=== PATIENT | female | born 1940 ===

== ENCOUNTER → 2021-02-28 13:51 | Outpatient (BNVA) | payer MEDICARE, MEDICAID, SELFPAY | PROVIDERS: PCP Family Medicine; Visit Provider Hospitalist | DX: G47.33 Obstructive sleep apnea (adult) (pediatric) (principal); J45.40 Moderate persistent asthma, uncomplicated | CPT/HCPCS: 99212 ==

== ENCOUNTER → 2021-04-01 10:12 | Outpatient (REF) | payer MEDICARE, MEDICAID, SELFPAY | LOC: HO.SL 10:12 | PROVIDERS: PCP Family Medicine; Visit Provider Hospitalist | DX: G47.33 Obstructive sleep apnea (adult) (pediatric) (principal) | CPT/HCPCS: 95806 ==

== ENCOUNTER → 2021-05-19 10:23 | Outpatient (BNVA) | payer MEDICARE, MEDICAID, SELFPAY | PROVIDERS: PCP Family Medicine; Visit Provider Hospitalist | DX: J45.40 Moderate persistent asthma, uncomplicated (principal); J31.0 Chronic rhinitis; G47.33 Obstructive sleep apnea (adult) (pediatric) | CPT/HCPCS: 99212 ==

== ENCOUNTER → 2021-07-14 20:36 | Outpatient (REF) | payer MEDICARE, MEDICAID, SELFPAY | LOC: HO.SL 20:36 | PROVIDERS: Visit Provider Hospitalist | DX: G47.33 Obstructive sleep apnea (adult) (pediatric) (principal) | CPT/HCPCS: 95811 ==

== ENCOUNTER → 2021-07-21 10:06 | Outpatient (BNVA) | payer MEDICARE, MEDICAID, SELFPAY | PROVIDERS: PCP Family Medicine; Visit Provider Hospitalist | DX: G47.33 Obstructive sleep apnea (adult) (pediatric) (principal); J45.40 Moderate persistent asthma, uncomplicated; J31.0 Chronic rhinitis | CPT/HCPCS: 99212; J0461 ==

== ENCOUNTER → 2021-10-15 11:17 | Outpatient (BNVA) | payer MEDICARE, MEDICAID, SELFPAY | PROVIDERS: PCP Family Medicine; Visit Provider Hospitalist | DX: G47.33 Obstructive sleep apnea (adult) (pediatric) (principal); J31.0 Chronic rhinitis | CPT/HCPCS: 99212 ==

== ENCOUNTER → 2021-11-26 10:08 | Outpatient (BNVA) | payer MEDICARE, MEDICAID, SELFPAY | PROVIDERS: PCP Family Medicine; Visit Provider Hospitalist | DX: J45.40 Moderate persistent asthma, uncomplicated (principal); J31.0 Chronic rhinitis; G47.33 Obstructive sleep apnea (adult) (pediatric); I50.9 Heart failure, unspecified | CPT/HCPCS: 94618; 99212 ==

== ENCOUNTER → 2022-01-22 10:11 | Outpatient (BNVA) | payer MEDICARE, MEDICAID, SELFPAY | PROVIDERS: PCP Family Medicine; Visit Provider Hospitalist | DX: G47.33 Obstructive sleep apnea (adult) (pediatric) (principal); J45.40 Moderate persistent asthma, uncomplicated; J31.0 Chronic rhinitis; I50.9 Heart failure, unspecified | CPT/HCPCS: 99212 ==

== ENCOUNTER 2022-05-18 14:07 | Outpatient (REF) | payer MEDICARE, MEDICAID, SELFPAY ==
--- NOTE | ~2022-05-18 | XR_ITS ---
EXAMINATION: XR CHEST CLINICAL INFORMATION: R07.9 - Chest pain, unspecified COMPARISON: None TECHNIQUE: 2 views of the chest were obtained. FINDINGS: No pneumothorax, pleural reaction, or effusion. The costophrenic sulci are clear. The cardiopericardial silhouette is normal in size. There is mild fullness central vasculature. No Leon B lines. No cephalization of flow. There are surgical clips overlying the lower right anterior lateral chest. The hilar and mediastinal contours are unremarkable. There are degenerative changes thoracic spine. No visible acute bony abnormality. XR/XR chest 2V IMPRESSION: -No pneumothorax, infiltrate, or effusion. -Heart size normal. Mild fullness central vasculature. No Leon B lines.
== END 2022-05-18 14:08 | disposition home or self-care (01) ==
LOC: HO.XRAY 14:07
PROVIDERS: PCP Family Medicine; Visit Provider Hospitalist
DX: R07.9 Chest pain, unspecified (principal); J45.40 Moderate persistent asthma, uncomplicated; J31.0 Chronic rhinitis; G47.33 Obstructive sleep apnea (adult) (pediatric); I50.9 Heart failure, unspecified
CPT/HCPCS: 71046; 99212

== ENCOUNTER → 2022-09-14 13:09 | Outpatient (BNVA) | payer MEDICARE, MEDICAID, SELFPAY | PROVIDERS: PCP Family Medicine; Visit Provider Hospitalist | DX: J31.0 Chronic rhinitis (principal); J45.40 Moderate persistent asthma, uncomplicated; G47.33 Obstructive sleep apnea (adult) (pediatric); I50.9 Heart failure, unspecified | CPT/HCPCS: 99212 ==

== ENCOUNTER → 2022-12-04 10:33 | Outpatient (BNVA) | payer MEDICARE, MEDICAID, SELFPAY | PROVIDERS: PCP Family Medicine; Visit Provider Hospitalist | DX: J45.40 Moderate persistent asthma, uncomplicated (principal); J31.0 Chronic rhinitis; I50.9 Heart failure, unspecified; R07.9 Chest pain, unspecified; G47.33 Obstructive sleep apnea (adult) (pediatric); C76.2 Malignant neoplasm of abdomen; C77.9 Secondary and unspecified malignant neoplasm of lymph node, unspecified; R97.8 Other abnormal tumor markers | CPT/HCPCS: 99212 ==

== ENCOUNTER → 2023-02-16 14:07 | Outpatient (BNVA) | payer MEDICARE, MEDICAID, SELFPAY | PROVIDERS: PCP Family Medicine; Visit Provider Hospitalist | DX: J45.40 Moderate persistent asthma, uncomplicated (principal); J31.0 Chronic rhinitis; I50.9 Heart failure, unspecified; G47.33 Obstructive sleep apnea (adult) (pediatric); Z99.89 Dependence on other enabling machines and devices | CPT/HCPCS: 99212 ==

== ENCOUNTER → 2023-04-05 11:19 | Outpatient (BNVA) | payer MEDICARE, MEDICAID, SELFPAY | PROVIDERS: PCP Family Medicine; Visit Provider Hospitalist | DX: J45.40 Moderate persistent asthma, uncomplicated (principal); J31.0 Chronic rhinitis; G47.33 Obstructive sleep apnea (adult) (pediatric); I50.9 Heart failure, unspecified; I35.0 Nonrheumatic aortic (valve) stenosis; R06.00 Dyspnea, unspecified | CPT/HCPCS: 94618; 99212 ==

== ENCOUNTER 2023-08-06 11:19 | Outpatient (AMB) | payer MEDICARE, MEDICAID, SELFPAY ==
--- NOTE | 2023-08-06 11:23 | A.OFFVIS_ITS ---
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 Her last visit with the oncologist was reassuring. She is scheduled for another CAT scan in October. Her asthma is appears to be in good control with the Symbicort, in cruise and also has a short-acting beta agonist. She does not use a short-acting beta agonist more than twice a week. Her biggest issue right now staying with sleep apnea. She is not getting supplies and t herefore her equipment is not up to date and she cannot keep using it with equipment that is contaminated. Therefore, her DME company is no longer providing her with supplies. The patient needs to have another sleep study in order to get reoccur point with the CPAP DME company to be able to get supplies. The patient continues to have significant daytime drowsiness with headaches in the morning and an elevated Leesville score 12/24. She also did have a CT scan of the chest and abdomen. It appears that there's no evidence of any metastatic disease, although, her CA [address] still elevated[address] Her last [address] scan of the chest was on October 30 2019. The patient will continue getting imaging studies through her oncologist. She continues her respiratory therapy. We did download the machine her AHI is down to about 1.5. Her average pressure is approximately 14 cm of water. Her machine set right now 4-16. It appears that she has a hard time with the higher pressures. Therefore I adjusted her machine to 10-14 hoping that we can keep her in the therapeutic window. She will try and see. In the meantime respiratory status has been stable. She denies any new issues with her underlying metastatic disease. 07/04/2020 the patient is here for pulmonary follow-up visit. Overall she is doing well. She is using her CPAP in the therapy has been affecting beneficial. However, she still leaks a lot air from the mask and is hard for her to tolerate. I did recommend different mask F30 and did fill out the paperwork from [facility] in order for her to get supplies. Patient will need a mask fitting as well. She continues to have allergy symptoms. Apparently started works better than Claritin so therefore we will change her medication to the more effective for her. She is to continue her respiratory therapy at this time. No recent exacerbations or need for prednisone at this time. 02/28/2021 the patient is here for pulmonary follow-up visit. Overall the patient has been doing well. She recently had an appointment with her oncologist and did not find any recurrence of her colon cancer. She is very happy about this. In the meantime her asthma seems to be in good control with the current respiratory regimen. She still struggling getting supplies from her CPAP company. At this point the patient does not appear to be active with her DME company and therefore has not been able to get supplies. The only way to get her supplies is to repeat her evaluation in reassess her for sleep apnea. If her sleep study does come back positive that we can arrange her to get active activated with different DME company. The patient is concerned because since she has been getting supplies she is concerning with the equipment being contaminated and she does not want to get sick. When she does not use her CPAP her Leesville score is elevated 10/17. 05/19/2021 the patient is here for a pulmonary follow-up visit. Overall she is doing well from a respiratory status. We had a bad quality seems that her respiratory status has worsening with it and she has required her short- acting beta agonist. She continues use her maintenance medication with good adherence. In the meantime she continues to have issues with her sleep apnea. She is not getting any supplies from [employer] because she is considered inactive. She did have a repeat sleep study demonstrating severe sleep apnea with AHI greater than 50 in addittion significant hypoxemia. Based on the severity of disease patient warrants a CPAP/ BiPAP titration study. Will make arrangements at this time for her to do so. In the meantime she is going to continue with respiratory therapy and will stay indoor specially while the poor air quality is present in the [facility]. her other new complaint is sinus discomfort and nasal congestion typically in the morning. 10/15/2021 the patient is here for a pulmonary follow-up visit. Overall the patient has been doing well although still feeling significant daytime angelica wsiness. Her Leesville score continues to be significantly elevated at 12/24. She had her CPAP titration study. The patient was able to be effectively treated with a CPAP between 8-10 cm. She did not require oxygen supplementation which is reassuring. At this point I will request an urgent APAP set up for the patient based on her severe sleep apnea and hypoxemia. Otherwise respiratory status has been stable. The patient has not require her short-acting beta agonist. She continues on her maintenance therapy with good effect. The APAP therapy was ordered back in July, but she has yet to start the therapy. I did call the DME and should be provided in the next 1-2 weeks. Otherwise the patient is doing well. She needs to get both the booster covid vaccine and also the flu shot. 11/26/2021 the patient is here for pulmonary follow-up visit. Recently she was hospitalized due to congestive heart failure. She was told that she had significant right-sided heart failure. She also had an echocardiogram that I do not have the results but had a preserved EF. The patient was placed on CPAP at nighttime. Unfortunately she still waiting for the CPAP that was requested months ago. This is primarily due to the pandemic. I did call the [employer] company and they did have an emergency the stalk. The able supply a new CPAP for her urgently at this time. In the meantime she is on a higher dose diuretic. 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 She also follows up with Nephrology. She will be calling them for an appointment. In the meantime I will have her undergo blood work to make sure that she is not developing significant insufficiency with the additional diuresis. Her breathing has improved. In the office we did perform a 6 minute walk test and she did not qualify for oxygen which is reassuring. We will follow-up in 2 months after she has situated with her CPAP to assess improvement. In the meantime it is likely the patient will be undergoing additional testing. Hopefully she does have a right heart catheterization to better address any evidence of any pulmonary hypertension and to categorize her condition better. 05/18/2022 the patient is here for a pulmonary follow-up visit. Patient has been complaining of some epigastric discomfort and some reflux related issues. Moderate severity. Also has a cough. She continues uses CPAP. The CPAP therapy continues to be Affecting beneficial. Because of the epigastric discomfort we had her undergo a chest x-ray. She does have some increased vasculature markings. The patient is already on diuretics. She is also on cardioprotective medications. 09/14/2022 the patient is here for a pulmonary follow-up visit. Since we last spoke she developed worsening chest discomfort and she did go to the ER. She was noted to have significant coronary artery disease. She underwent open heart surgery. There were able to perform a 2 vessel CABG. Clinically the patient did well. She is to have discomfort from her surgery. she continues use her respiratory therapy. Her breathing has improved after her surgery. The patient has been using her respiratory inhalers with good adherence. She also continues use her CPAP. The CPAP therapy continues to be affecting beneficial. She does use it for more than 4 hours a night. At this point the patient is doing well follow-up in 8-12 months or sooner if any new issues arise. 12/04/2022 the patient is here for a pulmonary follow-up visit. The patient has been complaining of some substernal chest pressure sensation. She still has the area of the surgery a bit swollen. She started doing the nebulizer treatments and she felt relief which is reassuring. She still having some increased cough and chest congestion. The patient has been using her Symbicort as needed. In addition to that, the patient had been sent home with the Trelegy. We did call pharmacy to confirm that. I explained to the patient that she cannot use the Trelegy in the Symbicort. Therefore she will hold off on the Symbicort and continue to use the Trelegy daily. The patient also continues use her nebulizer as needed I will make sure far to have a rescue inhaler available. In regards the CPAP she continues use it every night. The CPAP therapy has been affecting beneficial. She states that she is using it for more than 4 hours a night. I do not have access to a review right now. However, she has not gotten mask in long time. I did reach out to her [employer] company to see with this status is. It may be the issue that the patient does not answer her phone calls specially if she is not aware of the number. Otherwise patient is doing well. Will have her undergo a chest x-ray. Patient prefers to do it at [facility]. 02/16/2023 the the patient is here for pulmonary follow-up visit. She was recently hospitalized with heart failure at [facility] prior to that she was admitted to the hospital with a bowel obstruction requiring fluid. Her Lasix dose has been increased at times. The patient recently was sick a upper respiratory illness. She developed a cough. She went to an urgent care last week and she was given prednisone and also antibiotics. Clinically she is feeling better although she was only given 5 days of the prednisone he is running out. She still has some wheezing on examination. She has also been using her nebulizer. Her daughter is monitoring closely her weight specially since she is not taking all the diuretics prescribed. Her volume status seems to be better. Her breathing also has been better although she is very fatigued. She was noted to be anemic. 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 The patient does have a hist ory of colon cancer. She also also status post cardiac surgery. We did go for brief walking oximetry in the patient did not requalify for oxygen. Will have her check an overnight oximetry to see if she needs oxygen at nighttime. 04/05/2023 the patient is here for pulmonary follow-up visit. The patient is having worsening dyspnea on exertion since she left the hospital. She has been using the Lasix and the Aldactone. Although call back to using this morning because she was going to go out of the house and is hard for her. She continues use respiratory therapy with partial resolution of the symptoms. The patient did have a 6 minutes walk test the patient did desaturate down to 88% with activity and she was visibly dyspneic with a dyspnea score of 8/10. She did rest we did place her on oxygen and the patient was able to then ambulate a little better. In the meantime the oxygen requirement is appears to be new. She does have a condition of congestive heart failure. Also has a history of cancer. Therefore if the differential is broad as far as the etiology of the acute respiratory failure. Will request blood work and also a chest x-ray and also a D-dimer. If the D-dimer is elevated she may need to get a CTA to rule out thromboembolic disease. If her symptoms worsen then she should go to the ER for further care. She is going to continue with current respiratory therapy and we will provide her with oxygen for home and also portability outside of the home. 08/06/2023 the patient is here for a pulmonary follow-up visit. Since she is been using the oxygen she felt better. Also she has been aggressively diuresed and therefore this is helping with the heart failure issues. Her respiratory status has been stable. She continues uses CPAP at nighttime. Will go ahead and request an overnight oximetry to see if she needs the oxygen along with CPAP. Also will request an adapter for her CPAP in case she does need the oxygen with CPAP. She continues with respiratory therapy with good effect. the CPAP therapy continues to be affecting beneficial. She does try to use it more than 4 hours a night. Initially when she got the oxygen she was not sure what to do. Explained to her that because of her heart condition she needs to be using her CPAP to help decrease the work on the heart. The patient will start using her CPAP now more regularly. [facility] Medical History (Updated 08/08/23 @ 22:02 by Ron Ny MD) Dyspnea Heart failure Chronic rhinitis Colon cancer Asthma BRADEN (obstructive sleep apnea) Surgical History (Updated 01/22/22 @ 11:24 by Aubree Luna PA-C) History of tubal ligation History of tonsillectomy Social History (Updated 09/14/22 @ 13:26 by Marlene Mcnulty Artem) Patient Tobacco Use Status: Former Tobacco user Review of Systems Const Denies night sweats ENT Denies change in voice, Denies lip swelling, Denies mouth pain, Reports nasal congestion, Reports nasal discharge, Denies sinus pain and Denies tongue swelling Card Denies chest pain and Reports dyspnea on exertion Resp Reports cough, Reports dyspnea on exertion and Denies wheezing GI Reports abdominal pain, Reports dyspepsia and Reports heartburn Musc Denies no additional complaints Neuro Denies Neuro-related abnormal movements Psych Denies no additional complaints Kameron/Lymph Denies easy bleeding and Denies lymphadenopathy Aller/Immun Denies lip swelling, Denies tongue swelling and Denies wheezing Physical Exam Vital Signs: Last Vital Signs Pulse 77 08/06/23 11:24 Pulse Ox 96 08/06/23 11:24 Oxygen Delivery Method Room Air 08/06/23 11:24 BMI result Body Mass Index 37.5 Const General: alert Neck Neck: Yes normal visual inspection, Yes full ROM and Yes no lymphadenopathy Chest Chest palpation & inspection: normal inspection of the chest Resp Auscultation: no wheezes and diminished lung sounds Cardio Rate: regular rate Rhythm: regular rhythm Heart sounds: S1 normal heart sound present and S2 normal heart sound present GI Palpation (GI): Soft to palpation and nontender Auscultation: normal bowel sounds Skin General skin exam: rashes and/or lesions noted Extrem General: Yes edema Assessment & Plan Assessment & Plan (1) Asthma: Code(s): J45.909 - Unspecified asthma, uncomplicated Qualifiers: Asthma complication type: uncomplicated Asthma persistence: persistent Asthma severity: moderate Qualified Code(s): J45.40 - Moderate persistent asthma, uncomplicated (2) BRADEN (obstructive sleep apnea): Code(s): G47.33 - Obstructive sleep apnea (adult) (pediatric) (3) Chronic rhinitis: Code(s): J31.0 - Chronic rhinitis (4) Heart failure: Code(s): I50.9 - Heart failure, unspecified Qualifiers: Heart failure chronicity: chronic Heart failure type: systolic Qualified Code(s): I50.22 - Chronic systolic (congestive) heart failure (5) Dyspnea: Code(s): R06.00 - Dyspnea, unspecified Qualifiers: Dyspnea type: dyspnea on exertion Qualified Code(s): R06.09 - Other forms of dyspnea Plan oxygen 2L with activity. Continue Symbicort twice a day continue Incruse daily Needs to f/u with cardiology re: CHF / no requesting overnight pulse oximeter on cpap on RA continue fluticasone nasal spray Diuresis as tolerated Continue APAP 8-12 cm , mask to F20 reflux diet follow-up in 3-4 months Orders: Orders Overnight Pulse Oximetry Today I50.9 - Heart failure, unspecified, R06.00 - Dyspnea, unspecified Coding Level of Care Code Est Pt Level 4 (42770) Diagnoses Moderate persistent asthma without complication J45.40 Asthma complication type: uncomplicated Asthma persistence: persistent Asthma severity: moderate BRADEN (obstructive sleep apnea) G47.33 Chronic rhinitis J31.0 Chronic systolic heart failure I50.22 Heart failure chronicity: chronic Heart failure type: systolic Dyspnea on exertion R06.09 Dyspnea type: dyspnea on exertion Time Spent (min) 18
[2023-08-06 11:24] VITALS: PULSE 77; O2SAT 96; BMI 37.5
== END 2023-08-06 12:10 | disposition home or self-care (01) ==
PROVIDERS: PCP Family Medicine; Visit Provider Hospitalist
DX: J45.40 Moderate persistent asthma, uncomplicated (principal); G47.33 Obstructive sleep apnea (adult) (pediatric); J31.0 Chronic rhinitis; I50.22 Chronic systolic (congestive) heart failure; R06.09 Other forms of dyspnea
CPT/HCPCS: 99214

== ENCOUNTER → 2023-08-06 11:19 | Outpatient (BNVA) | payer MEDICARE, MEDICAID, SELFPAY | PROVIDERS: PCP Family Medicine; Visit Provider Hospitalist | DX: J45.40 Moderate persistent asthma, uncomplicated (principal); G47.33 Obstructive sleep apnea (adult) (pediatric); J31.0 Chronic rhinitis; I50.22 Chronic systolic (congestive) heart failure; R06.09 Other forms of dyspnea | CPT/HCPCS: 99212 ==

== ENCOUNTER 2024-01-14 15:47 | Outpatient (AMB) | payer OTHER, SELFPAY ==
[2024-01-14 15:54] VITALS: BP 122/48; PULSE 74; O2SAT 97; BMI 35.5
--- NOTE | 2024-01-14 15:54 | MHC.OFFVIS ---
Intake Vital Signs 01/14/24 15:54 Height 5 ft 2 in Weight 194 lb 0.108 oz BMI 35.5 BP 122/48 L Blood Pressure Location Lt brachial Position Sitting Pulse 74 Pulse Source Pulse Oximeter Pulse Oximetry (%) 97 Oxygen Delivery Method Room Air Intake Visit Reasons: Asthma Intake Note: pt needs refill on albuterol for nebulizer Allergies No Known Allergies Allergy (Verified 01/14/24 15:57) HPI HPI Comments History of Present Illness Details The patient is a 83-year-old woman known asthma obstructive sleep apnea and also abdominal cancer that has spread to the lymph nodes followed closely by Oncology. Her last visit with the oncologist was reassuring. She is scheduled for another CAT scan in October. Her asthma is appears to be in good control with the Symbicort, in cruise and also has a short-acting beta agonist. She does not use a short-acting beta agonist more than twice a week. Her biggest issue right now staying with sleep apnea. She is not getting supplies and therefore her equipment is not up to date and she cannot keep using it with equipment that is contaminated. Therefore, her [employer] company is no longer providing her with supplies. The patient needs to have another sleep study in order to get reoccur point with the CPAP DME company to be able to get supplies. The patient continues to have significant daytime drowsiness with headaches in the morning and an elevated [place] score 12/24. She also did have a CT scan of the chest and abdomen. It appears that there's no evidence of any metastatic disease, although, her CA [address] still elevated[address] last [address] scan of the chest was on October 30 2019. The patient will continue getting imaging studies through her oncologist. She continues her respiratory therapy. We did download the machine her AHI is down to about 1.5. Her average pressure is approximately 14 cm of water. Her machine set right now 4-16. It appears that she has a hard time with the higher pressures. Therefore I adjusted her machine to 10-14 hoping that we can keep her in the therapeutic window. She will try and see. In the meantime respiratory status has been stable. She denies any new issues with her underlying metastatic disease. 12/04/2022 the patient is here for a pulmonary follow-up visit. The patient has been complaining of some substernal chest pressure sensation. She still has the area of the surgery a bit swollen. She started doing the nebulizer treatments and she felt relief which is reassuring. She still having some increased cough and chest congestion. The patient has been using her Symbicort as needed. In addition to that, the patient had been sent home with the Trelegy. We did call pharmacy to confirm that. I explained to the patient that she cannot use the Trelegy in the Symbicort. Therefore she will hold off on the Symbicort and continue to use the Trelegy daily. The patient also continues use her nebulizer as needed I will make sure far to have a rescue inhaler available. In regards the CPAP she continues use it every night. The CPAP therapy has been affecting beneficial. She states that she is using it for more than 4 hours a night. I do not have access to a review right now. However, she has not gotten mask in long time. I did reach out to her [employer] company to see with this status is. It may be the issue that the patient does not answer her phone calls specially if she is not aware of the number. Otherwise patient is doing well. Will have her undergo a chest x-ray. Patient prefers to do it at [facility]. 02/16/2023 the the patient is here for pulmonary follow-up visit. She was recently hospitalized with heart failure at [facility] prior to that she was admitted to the hospital with a bowel obstruction requiring fluid. Her Lasix dose has been increased at times. The patient recently was sick a upper respiratory illness. She developed a cough. She went to an urgent care last week and she was given prednisone and also antibiotics. Clinically she is feeling better although she was only given 5 days of the prednisone he is running out. She still has some wheezing on examination. She has also been using her nebulizer. Her daughter is monitoring closely her weight specially since she is not taking all the diuretics prescribed. Her volume status seems to be better. Her breathing also has been better although she is very fatigued. She was noted to be anemic. 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 The patient does have a history of colon cancer. She also also status post cardiac surgery. We did go for brief walking oximetry in the patient did not requalify for oxygen. Will have her check an overnight oximetry to see if she needs oxygen at nighttime. 04/05/2023 the patient is here for pulmonary follow-up visit. The patient is having worsening dyspnea on exertion since she left the hospital. She has been using the Lasix and the Aldactone. Although call back to using this morning because she was going to go out of the house and is hard for her. She continues use respiratory therapy with partial resolution of the symptoms. The patient did have a 6 minutes walk test the patient did desaturate down to 88% with activity and she was visibly dyspneic with a dyspnea score of 8/10. She did rest we did place her on oxygen and the patient was able to then ambulate a little better. In the meantime the oxygen requirement is appears to be new. She does have a condition of congestive heart failure. Also has a history of cancer. Therefore if the differential is broad as far as the etiology of the acute respiratory failure. Will request blood work and also a chest x-ray and also a D-dimer. If the D-dimer is elevated she may need to get a CTA to rule out thromboembolic disease. If her symptoms worsen then she should go to the ER for further care. She is going to continue with current respiratory therapy and we will provide her with oxygen for home and also portability outside of the home. 08/06/2023 the patient is here for a pulmonary follow-up visit. Since she is been using the oxygen she felt better. Also she has been aggressively diuresed and therefore this is helping with the heart failure issues. Her respiratory status has been stable. She continues uses CPAP at nighttime. Will go ahead and request an overnight oximetry to see if she needs the oxygen along with CPAP. Also will request an adapter for her CPAP in case she does need the oxygen with CPAP. She continues with respiratory therapy with good effect. the CPAP therapy continues to be affecting beneficial. She does try to use it more than 4 hours a night. Initially when she got the oxygen she was not sure what to do. Explained to her that because of her heart condition she needs to be using her CPAP to help decrease the work on the heart. The patient will start using her CPAP now more regularly. 01/14/2024 the patient is here for a pulmonary follow-up visit. Since we last spoke the patient did recover from COVID-19. Was not as severe as other people in her family. She did not need hospitalization. She did not take Paxlovid. Her symptoms have now improved although she continues to have the daytime drowsiness fatigue and brain fog. She understands the symptoms will potentially last weeks to months. In regards of her sleep apnea the CPAP therapy continues to be affecting beneficial. She does use it for more than 4 hours a night. However, she is getting irritation of the nasal bridge from the fullface mask. Therefore did have an F30 I mask available dense fit her well. Seems like the SW mask size is best suited for her. COUNT INCLUDES THE [facility] Medical History (Updated 08/08/23 @ 22:02 by Ron Ny MD) Dyspnea Heart failure Chronic rhinitis Colon cancer Asthma BRADEN (obstructive sleep apnea) Surgical History (Updated 01/22/22 @ 11:24 by Aubree Luna PA-C) History of tubal ligation History of tonsillectomy Social History (Updated 09/14/22 @ 13:26 by ELAINE Gunter) Patient Tobacco Use Status: Former Tobacco user Review of Systems Const Denies night sweats ENT Denies change in voice, Denies lip swelling, Denies mouth pain, Reports nasal congestion, Reports nasal discharge, Denies sinus pain and Denies tongue swelling Card Denies chest pain and Reports dyspnea on exertion Resp Reports cough, Reports dyspnea on exertion and Denies wheezing GI Reports abdominal pain, Reports dyspepsia and Reports heartburn Musc Denies no additional complaints Neuro Denies Neuro-related abnormal movements Psych Denies no additional complaints Kameron/Lymph Denies easy bleeding and Denies lymphadenopathy Aller/Immun Denies lip swelling, Denies tongue swelling and Denies wheezing Physical Exam Vital Signs: Last Vital Signs Pulse 74 01/14/24 15:54 BP 122/48 L 01/14/24 15:54 Pulse Ox 97 01/14/24 15:54 Oxygen Delivery Method Room Air 01/14/24 15:54 BMI result Body Mass Index 35.5 Const General: alert Neck Neck: Yes normal visual inspection, Yes full ROM and Yes no lymphadenopathy Chest Chest palpation & inspection: normal inspection of the chest Resp Auscultation: no wheezes and diminished lung sounds Cardio Rate: regular rate Rhythm: regular rhythm Heart sounds: S1 normal heart sound present and S2 normal heart sound present GI Palpation (GI): Soft to palpation and nontender Auscultation: normal bowel sounds Skin General skin exam: rashes and/or lesions noted Extrem General: Yes edema Assessment & Plan Assessment & Plan (1) Asthma: Code(s): J45.909 - Unspecified asthma, uncomplicated Qualifiers: Asthma complication type: uncomplicated Asthma persistence: persistent Asthma severity: moderate Qualified Code(s): J45.40 - Moderate persistent asthma, uncomplicated (2) BRADEN (obstructive sleep apnea): Code(s): G47.33 - Obstructive sleep apnea (adult) (pediatric) (3) Chronic rhinitis: Code(s): J31.0 - Chronic rhinitis (4) Heart failure: Code(s): I50.9 - Heart failure, unspecified Qualifiers: Heart failure chronicity: chronic Heart failure type: systolic Qualified Code(s): I50.22 - Chronic systolic (congestive) heart failure (5) Dyspnea: Code(s): R06.00 - Dyspnea, unspecified Qualifiers: Dyspnea type: dyspnea on exertion Qualified Code(s): R06.09 - Other forms of dyspnea Plan oxygen 2L with activity. Continue Symbicort twice a day continue Incruse daily continue fluticasone nasal spray Diuresis as tolerated Continue APAP 8-12 cm , mask to F20 ([facility])->F30i SW reflux diet follow-up in 6 months Medications: Refilled albuterol sulfate 2.5 mg (3 mL) inhalation Q8H PRN 180 mL 6RF shortness of breath or wheezing J45.40 - Moderate persistent asthma, uncomplicated Coding Level of Care Code Est Pt Level 4 (83982) Diagnoses Moderate persistent asthma without complication J45.40 Asthma complication type: uncomplicated Asthma persistence: persistent Asthma severity: moderate BRADEN (obstructive sleep apnea) G47.33 Chronic rhinitis J31.0 Chronic systolic heart failure I50.22 Heart failure chronicity: chronic Heart failure type: systolic Dyspnea on exertion R06.09 Dyspnea type: dyspnea on exertion Time Spent (min) 18
== END 2024-01-14 16:19 | disposition home or self-care (01) ==
PROVIDERS: PCP Family Medicine; Visit Provider Hospitalist
DX: J45.40 Moderate persistent asthma, uncomplicated (principal); G47.33 Obstructive sleep apnea (adult) (pediatric); J31.0 Chronic rhinitis; I50.22 Chronic systolic (congestive) heart failure; R06.09 Other forms of dyspnea
CPT/HCPCS: 99214

== ENCOUNTER → 2024-01-14 15:47 | Outpatient (BNVA) | payer OTHER, SELFPAY | PROVIDERS: PCP Family Medicine; Visit Provider Hospitalist | DX: J45.40 Moderate persistent asthma, uncomplicated (principal); G47.33 Obstructive sleep apnea (adult) (pediatric); R06.09 Other forms of dyspnea; J31.0 Chronic rhinitis; I50.22 Chronic systolic (congestive) heart failure; Z99.81 Dependence on supplemental oxygen; Z79.899 Other long term (current) drug therapy | CPT/HCPCS: 99212 ==

== ENCOUNTER 2024-07-21 15:25 | Outpatient (AMB) | payer OTHER, SELFPAY ==
--- NOTE | 2024-07-21 15:31 | A.OFFVIS_ITS ---
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 Her last visit with the oncologist was reassuring. She is scheduled for another CAT scan in October. Her asthma is appears to be in good control with the Symbicort, in cruise and also has a short-acting beta agonist. She does not use a short-acting beta agonist more than twice a week. Her biggest issue right now staying with sleep apnea. She is not getting supplies and therefore her equipment is not up to date and she cannot keep using it with equipment that is contaminated. Therefore, her DME company is no longer providing her with supplies. The patient needs to have another sleep study in order to get reoccur point with the CPAP DME company to be able to get supplies. The patient continues to have significant daytime drowsiness with headaches in the morning and an elevated [place] score 24. She also did have a CT scan of the chest and abdomen. It appears that there's no evidence of any metastatic disease, although, her CA [address] last [address] scan of the chest was on October 30 2019. The patient will continue getting imaging studies through her oncologist. She continues her respiratory therapy. We did download the machine her AHI is down to about 1.5. Her average pressure is approximately 14 cm of water. Her machine set right now 4-16. It appears that she has a hard time with the higher pressures. Therefore I adjusted her machine to 10-14 hoping that we can keep her in the therapeutic window. She will try and see. In the meantime respiratory status has been stable. She denies any new issues with her underlying metastatic disease. 12/04/2022 the patient is here for a pulmonary follow-up visit. The patient has been complaining of some substernal chest pressure sensation. She still has the area of the surgery a bit swollen. She started doing the nebulizer treatments and she felt relief which is reassuring. She still having some increased cough and chest congestion. The patient has been using her Symbicort as needed. In addition to that, the patient had been sent home with the Trelegy. We did call pharmacy to confirm that. I explained to the patient that she cannot use the Trelegy in the Symbicort. Therefore she will hold off on the Symbicort and continue to use the Trelegy daily. The patient also continues use her nebulizer as needed I will make sure far to have a rescue inhaler available. In regards the CPAP she continues use it every night. The CPAP therapy has been affecting beneficial. She states that she is using it for more than 4 hours a night. I do not have access to a review right now. However, she has not gotten mask in long time. I did reach out to her [employer] company to see with this status is. It may be the issue that the patient does not answer her phone calls specially if she is not aware of the number. Otherwise patient is doing well. Will have her undergo a chest x-ray. Patient prefers to do it at [facility]. 02/16/2023 the the patient is here for pulmonary follow-up visit. She was recently hospitalized with heart failure at [facility] prior to that she was admitted to the hospital with a bowel obstruction requiring fluid. Her Lasix dose has been increased at times. The patient recently was sick a upper respiratory illness. She developed a cough. She went to an urgent care last week and she was given prednisone and also antibiotics. Clinically she is feeling better although she was only given 5 days of the prednisone he is running out. She still has some wheezing on examination. She has also been using her nebulizer. Her daughter is monitoring closely her weight specially since she is not taking all the diuretics prescribed. Her volume status seems to be better. Her breathing also has been better although she is very fatigued. She was noted to be anemic. 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 The patient does have a history of colon cancer. She also also status post cardiac surgery. We did go for brief walking oximetry in the patient did not requalify for oxygen. Will have her check an overnight oximetry to see if she needs oxygen at nighttime. 04/05/2023 the patient is here for pulmonary follow-up visit. The patient is having worsening dyspnea on exertion since she left the hospital. She has been using the Lasix and the Aldactone. Although call back to using this morning because she was going to go out of the house and is hard for her. She continues use respiratory therapy with partial resolution of the symptoms. The patient did have a 6 minutes walk test the patient did desaturate down to 88% with activity and she was visibly dyspneic with a dyspnea score of 8/10. She did rest we did place her on oxygen and the patient was able to then ambulate a little better. In the meantime the oxygen requirement is appears to be new. She does have a condition of congestive heart failure. Also has a history of cancer. Therefore if the differential is broad as far as the etiology of the acute respiratory failure. Will request blood work and also a chest x-ray and also a D-dimer. If the D-dimer is elevated she may need to get a CTA to rule out thromboembolic disease. If her symptoms worsen then she should go to the ER for further care. She is going to continue with current respiratory therapy and we will provide her with oxygen for home and also portability outside of the home. 08/06/2023 the patient is here for a pulmonary follow-up visit. Since she is been using the oxygen she felt better. Also she has been aggressively diuresed and therefore this is helping with the heart failure issues. Her respiratory status has been stable. She continues uses CPAP at nighttime. Will go ahead and request an overnight oximetry to see if she needs the oxygen along with CPAP. Also will request an adapter for her CPAP in case she does need the oxygen with CPAP. She continues with respiratory therapy with good effect. the CPAP therapy continues to be affecting beneficial. She does try to use it more than 4 hours a night. Initially when she got the oxygen she was not sure what to do. Explained to her that because of her heart condition she needs to be using her CPAP to help decrease the work on the heart. The patient will start using her CPAP now more regularly. 01/14/2024 the patient is here for a pulmonary follow-up visit. Since we last spoke the patient did recover from COVID-19. Was not as severe as other people in her family. She did not need hospitalization. She did not take Paxlo vid. Her symptoms have now improved although she continues to have the daytime drowsiness fatigue and brain fog. She understands the symptoms will potentially last weeks to months. In regards of her sleep apnea the CPAP therapy continues to be affecting beneficial. She does use it for more than 4 hours a night. However, she is getting irritation of the nasal bridge from the fullface mask. Therefore did have an F30 I mask available dense fit her well. Seems like the SW mask size is best suited for her. 07/21/2024 the patient is here for pulmonary follow-up visit. Overall she is doing a lot better. She still has the oxygen available. Although has not been able to use it as often. Her brain fog is also improved. The patient has been using her CPAP at nighttime. The new nasal cradle mask is seems to be working better for her. She does tolerated well. Although she needs supplies. I will request a from her [employer]. She does CPAP more than 4 hours a night. As far as respiratory medications she continues use Symbicort. She was able to stop the Incruse which is good at this point she does have the rescue inhaler that she uses as needed less than 2 times a week. Overall the patient is doing well will have her get an x-ray for baseline. [facility] Medical History (Updated 08/08/23 @ 22:02 by Ron Ny MD) Dyspnea Heart failure Chronic rhinitis Colon cancer Asthma BRADEN (obstructive sleep apnea) Surgical History (Updated 01/22/22 @ 11:24 by Aubree Luna PA-C) History of tubal ligation History of tonsillectomy Social History (Updated 09/14/22 @ 13:26 by Marlene Mcnulty Artem) Patient Tobacco Use Status: Former Tobacco user Review of Systems Const Denies night sweats ENT Denies change in voice, Denies lip swelling, Denies mouth pain, Reports nasal congestion, Reports nasal discharge, Denies sinus pain and Denies tongue swelling Card Denies chest pain and Reports dyspnea on exertion Resp Reports cough, Reports dyspnea on exertion and Denies wheezing GI Reports abdominal pain, Reports dyspepsia and Reports heartburn Musc Denies no additional complaints Neuro Denies Neuro-related abnormal movements Psych Denies no additional complaints Kameron/Lymph Denies easy bleeding and Denies lymphadenopathy Aller/Immun Denies lip swelling, Denies tongue swelling and Denies wheezing Physical Exam Vital Signs: Last Vital Signs Pulse 78 07/21/24 15:32 BP 128/70 07/21/24 15:32 Pulse Ox 96 07/21/24 15:32 Oxygen Delivery Method Room Air 07/21/24 15:32 BMI result Body Mass Index 35.5 Const General: alert Neck Neck: Yes normal visual inspection, Yes full ROM and Yes no lymphadenopathy Chest Chest palpation & inspection: normal inspection of the chest Resp Auscultation: no wheezes and diminished lung sounds Cardio Rate: regular rate Rhythm: regular rhythm Heart sounds: S1 normal heart sound present and S2 normal heart sound present GI Palpation (GI): Soft to palpation and nontender Auscultation: normal bowel sounds Skin General skin exam: rashes and/or lesions noted Extrem General: Yes edema Assessment & Plan Assessment & Plan (1) Asthma: Code(s): J45.909 - Unspecified asthma, uncomplicated Category: Medical Qualifiers: Asthma complication type: uncomplicated Asthma persistence: persistent Asthma severity: moderate Qualified Code(s): J45.40 - Moderate persistent asthma, uncomplicated (2) BRADEN (obstructive sleep apnea): Code(s): G47.33 - Obstructive sleep apnea (adult) (pediatric) Category: Medical (3) Chronic rhinitis: Code(s): J31.0 - Chronic rhinitis Category: Medical (4) Heart failure: Code(s): I50.9 - Heart failure, unspecified Category: Medical Qualifiers: Heart failure chronicity: chronic Heart failure type: systolic Qualified Code(s): I50.22 - Chronic systolic (congestive) heart failure (5) Dyspnea: Code(s): R06.00 - Dyspnea, unspecified Category: Medical Qualifiers: Dyspnea type: dyspnea on exertion Qualified Code(s): R06.09 - Other forms of dyspnea Plan oxygen 2L with activity. Continue Symbicort twice a day stopped Incruse daily continue fluticasone nasal spray Diuresis as tolerated Continue APAP 8-12 cm , mask to F20 ([facility])->F30i SW reflux diet CXR follow-up in 6 months Orders: Orders XR chest 2V 07/21/24 R06.09 - Other forms of dyspnea Medications: New budesonide-formoterol 160-4.5 mcg/actuation (Symbicort) 2 puffs inhalation BID 10.2 grams 11RF 30 days J44.89 - Other specified chronic obstructive pulmonary disease Coding Level of Care Code Est Pt Level 4 (80741) Complex EM visit Add On G2211 Diagnoses Moderate persistent asthma without complication J45.40 Asthma complication type: uncomplicated Asthma persistence: persistent Asthma severity: moderate BRADEN (obstructive sleep apnea) G47.33 Chronic rhinitis J31.0 Chronic systolic heart failure I50.22 Heart failure chronicity: chronic Heart failure type: systolic Dyspnea on exertion R06.09 Dyspnea type: dyspnea on exertion Time Spent (min) 16
[2024-07-21 15:32] VITALS: BP 128/70; PULSE 78; O2SAT 96; BMI 35.5
== END 2024-07-21 15:53 | disposition home or self-care (01) ==
PROVIDERS: PCP Family Medicine; Visit Provider Hospitalist
DX: J45.40 Moderate persistent asthma, uncomplicated (principal); G47.33 Obstructive sleep apnea (adult) (pediatric); J31.0 Chronic rhinitis; I50.22 Chronic systolic (congestive) heart failure; R06.09 Other forms of dyspnea
CPT/HCPCS: 99214; G2211

== ENCOUNTER → 2024-07-21 15:25 | Outpatient (BNVA) | payer OTHER, SELFPAY | PROVIDERS: PCP Family Medicine; Visit Provider Hospitalist | DX: J45.40 Moderate persistent asthma, uncomplicated (principal); J31.0 Chronic rhinitis; R06.09 Other forms of dyspnea; G47.33 Obstructive sleep apnea (adult) (pediatric); I50.22 Chronic systolic (congestive) heart failure | CPT/HCPCS: 99212 ==

== ENCOUNTER 2025-03-28 09:11 | Outpatient (AMB) | payer OTHER, SELFPAY ==
--- NOTE | 2025-03-28 09:15 | A.OFFVIS_ITS ---
Vital Signs 03/28/25 09:16 Height 5 ft 2 in BMI Reason not done Patient refused/unable BP 114/50 L Blood Pressure Location Lt brachial Position Sitting Pulse 67 Pulse Source Pulse Oximeter Pulse Oximetry (%) 95 Oxygen Delivery Method Room Air Intake Visit Reasons: Asthma Allergies No Known Allergies Allergy (Verified 03/28/25 09:18) HPI Comments Details: The patient is a 84-year-old woman known asthma obstructive sleep apnea and also abdominal cancer that has spread to the lymph nodes followed closely by Oncology. Her last visit with the oncologist was reassuring. She is scheduled for another CAT scan in October. Her asthma is appears to be in good control with the Symbicort, in cruise and also has a short-acting beta agonist. She does not use a short-acting beta agonist more than twice a week. Her biggest issue right now staying with sleep apnea. She is not getting supplies and therefore her equipment is not up to date and she cannot keep using it with equipment that is contaminated. Therefore, her DME company is no longer providing her with supplies. The patient needs to have another sleep study in order to get reoccur point with the CPAP DME company to be able to get supplies. The patient continues to have significant daytime drowsiness with headaches in the morning and an elevated [place] score 12/24. She also did have a CT scan of the chest and abdomen. It appears that there's no evidence of any metastatic disease, although, her CA [address] still elevated[address] Her last [address] scan of the chest was on October 30 2019. The patient will continue getting imaging studies through her oncologist. She continues her respiratory therapy. We did download the machine her AHI is down to about 1.5. Her average pressure is approximately 14 cm of water. Her machine set right now 4-16. It appears that she has a hard time with the higher pressures. Therefore I adjusted her machine to 10-14 hoping that we can keep her in the therapeutic window. She will try and see. In the meantime respiratory status has been stable. She denies any new issues with her underlying metastatic disease. 12/04/2022 the patient is here for a pulmonary follow-up visit. The patient has been complaining of some substernal chest pressure sensation. She still has the area of the surgery a bit swollen. She started doing the nebulizer treatments and she felt relief which is reassuring. She still having some increased cough and chest congestion. The patient has been using her Symbicort as needed. In addition to that, the patient had been sent home with the Trelegy. We did call pharmacy to confirm that. I explained to the patient that she cannot use the Trelegy in the Symbicort. Therefore she will hold off on the Symbicort and continue to use the Trelegy daily. The patient also continues use her nebulizer as needed I will make sure far to have a rescue inhaler available. In regards the CPAP she continues use it every night. The CPAP therapy has been affecting beneficial. She states that she is using it for more than 4 hours a night. I do not have access to a review right now. However, she has not gotten mask in long time. I did reach out to her [employer] to see with this status is. It may be the issue that the patient does not answer her phone calls specially if she is not aware of the number. Otherwise patient is doing well. Will have her undergo a chest x-ray. Patient prefers to do it at [facility]. 02/16/2023 the the patient is here for pulmonary follow-up visit. She was recently hospitalized with heart failure at [facility] prior to that she was admitted to the hospital with a bowel obstruction requiring fluid. Her Lasix dose has been increased at times. The patient recently was sick a up per respiratory illness. She developed a cough. She went to an urgent care last week and she was given prednisone and also antibiotics. Clinically she is feeling better although she was only given 5 days of the prednisone he is running out. She still has some wheezing on examination. She has also been using her nebulizer. Her daughter is monitoring closely her weight specially since she is not taking all the diuretics prescribed. Her volume status seems to be better. Her breathing also has been better although she is very fatigued. She was noted to be anemic. The patient is working closely with her blade sharpener and oncologist regarding her anemia. The patient does have a history of colon cancer. She also also status post cardiac surgery. We did go for brief walking oximetry in the patient did not requalify for oxygen. Will have her check an overnight oximetry to see if she needs oxygen at nighttime. 04/05/2023 the patient is here for pulmonary follow-up visit. The patient is having worsening dyspnea on exertion since she left the hospital. She has been using the Lasix and the Aldactone. Although call back to using this morning because she was going to go out of the house and is hard for her. She continues use respiratory therapy with partial resolution of the symptoms. The patient did have a 6 minutes walk test the patient did desaturate down to 88% with activity and she was visibly dyspneic with a dyspnea score of 8/10. She did rest we did place her on oxygen and the patient was able to then ambulate a little better. In the meantime the oxygen requirement is appears to be new. She does have a condition of congestive heart failure. Also has a history of cancer. Therefore if the differential is broad as far as the etiology of the acute respiratory failure. Will request blood work and also a chest x-ray and also a D-dimer. If the D-dimer is elevated she may need to get a CTA to rule out thromboembolic disease. If her symptoms worsen then she should go to the ER for further care. She is going to continue with current respiratory therapy and we will provide her with oxygen for home and also portability outside of the home. 08/06/2023 the patient is here for a pulmonary follow-up visit. Since she is been using the oxygen she felt better. Also she has been aggressively diuresed and therefore this is helping with the heart failure issues. Her respiratory status has been stable. She continues uses CPAP at nighttime. Will go ahead and request an overnight oximetry to see if she needs the oxygen along with CPAP. Also will request an adapter for her CPAP in case she does need the oxygen with CPAP. She continues with respiratory therapy with good effect. the CPAP therapy continues to be affecting beneficial. She does try to use it more than 4 hours a night. Initially when she got the oxygen she was not sure what to do. Explained to her that because of her heart condition she needs to be using her CPAP to help decrease the work on the heart. The patient will start using her CPAP now more regularly. 01/14/2024 the patient is here for a pulmonary follow-up visit. Since we last spoke the patient did recover from COVID-19. Was not as severe as other people in her family. She did not need hospitalization. She did not take Paxlovid. Her symptoms have now improved although she continues to have the daytime drowsiness fatigue and brain fog. She understands the symptoms will potentially last weeks to months. In regards of her sleep apnea the CPAP therapy continues to be affecting beneficial. She does use it for more than 4 hours a night. However, she is getting irritation of the nasal bridge from the fullface mask. Therefore did have an F30 I mask available dense fit her well. Seems like the SW mask size is best suited for her. 07/21/2024 the patient is here for pulmonary follow-up visit. Overall she is doing a lot better. She still has the oxygen available. Although has not been able to use it as often. Her brain fog is also improved. The patient has been using her CPAP at nighttime. The new nasal cradle mask is seems to be working better for her. She does tolerated well. Although she needs supplies. I will request a from her [employer] company. She does CPAP more than 4 hours a night. As far as respiratory medications she continues use Symbicort. She was able to stop the Incruse which is good at this point she does have the rescue inhaler that she uses as needed less than 2 times a week. Overall the patient is doing well will have her get an x-ray for baseline. 03/28/2025 the patient is here for a pulmonary follow-up visit. Overall she is doing well from a respiratory status. She has not had any issues with her breathing and she actually has not had to use the oxygen. She is concerned about having oxygen house specially if she works with different things in the house she does not like the oxygen there so therefore will have them discontinue right now. The patient has a worse develops any worsening symptoms we can also re-evaluate to see if she needs it again. In the meantime she does continue to use his CPAP at night and a CPAP therapy has been affecting beneficial. She will continue with the current therapy as prescribed. She continues to have her respiratory medications as prescribed. The patient will follow-up in the spring if she has any issues prior to that she will call for an earlier assessment. [facility] Medical History (Updated 08/08/23 @ 22:02 by Ron Ny MD) Dyspnea Heart failure Chronic rhinitis Colon cancer Asthma BRADEN (obstructive sleep apnea) Surgical History (Updated 01/22/22 @ 11:24 by Aubree Luna PA-C) History of tubal ligation History of tonsillectomy Social History Patient Tobacco Use Status: Former Tobacco user Review of Systems Const Denies night sweats ENT Denies change in voice, Denies lip swelling, Denies mouth pain, Reports nasal congestion, Reports nasal discharge, Denies sinus pain and Denies tongue swelling Card Denies chest pain and Reports dyspnea on exertion Resp Reports cough, Reports dyspnea on exertion and Denies wheezing GI Reports abdominal pain, Reports dyspepsia and Reports heartburn Musc Denies no additional complaints Neuro Denies Neuro-related abnormal movements Psych Denies no additional complaints Kameron/Lymph Denies easy bleeding and Denies lymphadenopathy Aller/Immun Denies lip swelling, Denies tongue swelling and Denies wheezing Physical Exam Vital Signs: Last Vital Signs Pulse 67 03/28/25 09:16 BP 114/50 L 03/28/25 09:16 Pulse Ox 95 03/28/25 09:16 Oxygen Delivery Method Room Air 03/28/25 09:16 Const General: alert Neck Neck: Yes normal visual inspection, Yes full ROM and Yes no lymphadenopathy Chest Chest palpation & inspection: normal inspection of the chest Resp Auscultation: clear to auscultation bilaterally and no wheezes Cardio Rate: regular rate Rhythm: regular rhythm Heart sounds: S1 normal heart sound present and S2 normal heart sound present GI Palpation (GI): Soft to palpation and nontender Auscultation: normal bowel sounds Skin General skin exam: rashes and/or lesions noted Extrem General: Yes edema Assessment & Plan Assessment & Plan (1) Asthma: Code(s): J45.909 - Unspecified asthma, uncomplicated Category: Medical Qualifiers: Asthma complication type: uncomplicated Asthma persistence: persistent Asthma severity: moderate Qualified Code(s): J45.40 - Moderate persistent asthma, uncomplicated (2) BRADEN (obstructive sleep apnea): Code(s): G47.33 - Obstructive sleep apnea (adult) (pediatric) Category: Medical (3) Chronic rhinitis: Code(s): J31.0 - Chronic rhinitis Category: Medical (4) Heart failure: Code(s): I50.9 - Heart failure, unspecified Category: Medical Qualifiers: Heart failure chronicity: chronic Heart failure type: systolic Qualified Code(s): I50.22 - Chronic systolic (congestive) heart failure (5) Dyspnea: Code(s): R06.00 - Dyspnea, unspecified Category: Medical Qualifiers: Dyspnea type: dyspnea on exertion Qualified Code(s): R06.09 - Other forms of dyspnea Plan Stopped oxygen 2L with activity. Continue Symbicort twice a day continue fluticasone nasal spray Diuresis as tolerated Continue APAP 8-12 cm , mask to F20 ([employer]) reflux diet follow-up in 8-10 months Coding Level of Care Code Est Pt Level 4 (66655) Complex EM visit Add On G2211 Diagnoses Moderate persistent asthma without complication J45.40 Asthma complication type: uncomplicated Asthma persistence: persistent Asthma severity: moderate BRADEN (obstructive sleep apnea) G47.33 Chronic rhinitis J31.0 Chronic systolic heart failure I50.22 Heart failure chronicity: chronic Heart failure type: systolic Dyspnea on exertion R06.09 Dyspnea type: dyspnea on exertion Time Spent (min) 16
[2025-03-28 09:16] VITALS: BP 114/50; PULSE 67; O2SAT 95
--- OUTSIDE RECORDS SUMMARY | 2025-03-28 09:37 | XMS_ITS | Clinical Summary ---
Author Organization [employer] [facility] Address [address] [place] [address] Care Team Providers Care Printing Shop Supervisor Name Role Phone Unavailable Primary Care Provider Unavailabl e Allergies Active Allergy Reactions Criticality Noted Date Comments Other 01/05/2022 Pollen Extract 01/05/2022 Medications aspirin 81.25 MG split tablet Take 81 mg by mouth. 2 Active Ergocalciferol (Vitamin D2) 10 MCG (400 UNIT) tablet Take 1.25 mcg by mouth. 3 Active furosemide (Lasix) 40 MG tablet Take 1 tablet by mouth Once per day. 2 Active Tresiba FlexTouch 100 UNIT/ML injection INJECT 18 UNITS UNDER THE SKIN NIGHTLY AT BEDTIME. Active sertraline (Zoloft) 100 MG tablet Take by mouth. 7 Active Entresto 24-26 MG tablet Take 1 tablet by mouth 2 times daily. Active pantoprazole (ProtoNix) 40 MG EC tablet Take 40 mg by mouth. 2 Active Jardiance 10 MG Take 1 tablet by mouth in the morning. 3 Active calcitriol (Rocaltrol) 0.5 MCG capsule 2 capsules 1 (one) time per week. 3 Active insulin aspart (NovoLOG, Fiasp) 100 UNIT/ML patient supplied pump Inject under the skin continuously. Before meals Active carvedilol (Coreg) 12.5 MG tablet Take by mouth with breakfast and with evening meal. Active albuterol (2.5 MG/3ML) 0.083% nebulizer solution Take by nebulization every 6 (six) hours if needed for wheezing. Active Active Problems Problem Noted Date Diagnosed Date Coronary artery disease 07/20/2024 Overview (07/24/2024): Last Assessment & Plan: Status post CABG with JUAN to LAD, SVG to OM. She had no angina symptoms. Will check a lipid profile. Will discontinue Plavix. Anxiety disorder 06/14/2024 Benign essential hypertension 06/14/2024 (HFpEF) heart failure with preserved ejection fr action 06/14/2024 HFrEF (heart failure with reduced ejection fract ion) 06/14/2024 Class 1 obesity 06/14/2024 Class 2 obesity 06/14/2024 Coronary atherosclerosis due to calcified oconnor ry lesion 06/14/2024 Hypothyroidism 06/14/2024 Insulin long-term use 06/14/2024 Lower leg edema 06/14/2024 Microhematuria 06/14/2024 Moderate persistent asthma 06/14/2024 Overview (06/14/2024): Dr. Anant Ny Normocytic anemia 06/14/2024 Normocytic normochromic anemia 06/14/2024 NSTEMI (non-ST elevated myocardial infarction) 0 06/14/2024 Disorder of carotid artery 06/14/2024 Overview (06/14/2024): [facility] Hypotension 06/14/2024 Peripheral vascular disease 06/14/2024 Overview (06/14/2024): right iliac artery ballon angioplasty-03/2019left mid superficial femoral artery right iliac artery ballon angioplasty-03/2019left mid superficial femoral artery Polyp of colon 06/14/2024 Overview (06/14/2024): 07/2018 S/P CABG x 2 06/14/2024 Saphenous vein phlebitis 06/14/2024 Severe obesity 06/14/2024 Overview (06/14/2024): select into nl: where @patientid:1 = @patientid:1 detail ProblemRequest->problem[1].onset_dt_tm = cnvtdatetime(curdate,curtime3) ekssub- >mod = 'Problem added by Discern Expert' go * Sleep apnea 06/14/2024 Thickening of wall of gallbladder 06/14/2024 Diabetes mellitus with stage 3a chronic kidney disease, without long-term current use of insulin 06/14/2024 B12 deficiency 06/14/2024 Vitamin D deficiency 06/14/2024 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 But she still has persistent diastolic dysfunction. She has mild bilateral crackles at the lung bases. I will change furosemide to 40 mg twice a day. Her left ventricular systolic function has been back to normal and I will discontinue spironolactone. Also start Jardiance at 10 mg daily. If she can tolerate the dosage, will increase to 25 mg daily. We had a discussion about moderate fluid intake. 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 fib and was in sinus rhythm upon discharge. She has been on low-dose amiodarone and I will stop amnio when she finishes current refill. We will arrange 30-day monitor to make sure she does not have recurrent atrial fibrillation. Last Assessment & Plan: She is supposed to stop amiodarone. 30-day monitor was attempted but limited data were obtained from 5-day monitor. There was no evidence of a recurrent atrial fibrillation or atrial flutter. Just make sure she has stopped amiodarone. Ischemic cardiomyopathy 07/03/2022 Overview (06/14/2024): Last Assessment & Plan: Left ventricular systolic function has recovered. History of non-ST elevation myocardial infarctio n (NSTEMI) 05/24/2022 Overview (06/14/2024): s/p CABG x2 and PFO closure on 05/29/[address] Louie Ayala Pulmonary hypertension 04/01/2022 Overview (06/14/2024): Last Assessment & Plan: Likely multifactorial including diastolic heart failure, and lung disease. Biatrial enlargement 01/04/2022 Mitral regurgitation 01/04/2022 Overview (06/14/2024): Last Assessment & Plan: Improved. No significant murmur by physical exam. Echocardiogram has demonstrated mitral regurgitation improved from moderate to mild. Chronic kidney disease, stage 3 12/24/2021 Overview (06/14/2024): per chart review meeting GFR criteria COPD (chronic obstructive pulmonary disease) 11/2021 DOLAN (dyspnea on exertion) 12/24/2021 Carotid bruit 12/24/2021 Overview (06/14/2024): Dr. gu PFO (patent foramen ovale) 12/24/2021 Stage 2 chronic kidney disease 02/29/2020 Hypertensive nephrosclerosis 02/29/2020 IgA nephropathy 02/29/2020 Allergic rhinitis 04/03/2019 Bilateral carotid artery stenosis 04/03/2019 Carcinoma of unknown primary 04/03/2019 Carpal tunnel syndrome 04/03/2019 Chronic venous insufficiency 04/03/2019 Hyperlipidemia 04/03/2019 Hypertension 04/03/2019 Overview (06/14/2024): Last Assessment & Plan: Slightly higher. Hopefully increasing diuretic dosage will help hypertension control. Tubular adenoma 04/03/2019 Overview (06/14/2024): CN 2018 Type 2 diabetes mellitus 04/03/2019 Overview (06/14/2024): endo Using the freestyle yovanny 2, get supplies from [facility] Last Assessment & Plan: Control is reasonable but not optimal based upon the patient's freestyle yovanny 2 sensor download. No frequent or severe hypoglycemia. She has been having cookies at night before bed causing her over night glucose levels to run higher. Her readings after meals are running higher when having more carbohydrates. Will increase her tresiba to 20 units to help with the over night highs. Will have her increase her novolog to 10 or 12 units rather than 8 units when having more carbs to help prevent the post prandial highs. Continue to work on eating healthy and being active. To call or message with any issues managing her glucose levels. Up to date with [employer]. Labs ordered today Varicose veins with pain 04/03/2019 Vitamin B 12 deficiency 04/03/2019 PAD (peripheral artery disease) 01/14/2019 Pulmonary nodules 08/05/2018 Overview (06/14/2024): Dr. Anant Ny Arthritis 04/13/2018 Asthma 04/13/2018 Obstructive sleep apnea 03/22/2018 Overview (06/14/2024): [facility] Home Polysomnogram: Date 03/14/2018; AHI 12, Unclassified apneas 0; Obstructive apneas 17; Central apneas 0; Mixed apneas 0; hypopneas 82; average oxygen saturation 93% (lowest 62% without saturations <88% for 5% or more of study) - Obstructive Sleep Apnea - mild; mostly hypopneas with some obstructive apneas; without sleep related hypoventilation by 2018 home polysomnogram. Social History Tobacco Use Types Packs/Day Years Used Date Smoking Tobacco: Never Smokeless Tobacco: Never Tobacco Cessation:Counseling Given: Not Answered Comments Unknown Sex and Gender Information Value Date Recorded Sex Assigned at Female 08/24/2022 10:33 AM EDT Legal Sex Female 10:33 AM EDT Gender Identity Female 12/08/2022 8:53 AM EST Sexual Orientation Don't know 12/08/2022 8: 53 AM EST Last Filed Vital Signs Vital Sign Reading Time Taken Comments Blood Pressure 126/78 05/08/2024 9:10 AM EDT Pulse 70 05/08/2024 9:10 AM EDT Temperature - - Respiratory Rate - - Oxygen Saturation - - Inhaled Oxygen Concentration - - Weight - - Height - - Body Mass Index - - Plan of Treatment Health Maintenance Due Date Last Done Comments Dental Oral Exam 1940 Dental Prophylaxis 1940 Dental X-Ray: Bitewings 1940 Depression Screening 1940 Lipid Panel 1940 SDOH Screening 1940 Diabetes: Foot Exam 1950 Eye Exam 1950 Alcohol/Substance Use Screening 1952 DTaP/Tdap/Td Vaccines (1 - Tdap) 12/27/1959 Pneumococcal Vaccine: 50+ Years (1 of 2 - PCV) 12/27/1959 Zoster Vaccines (1 of 2) 1990 RSV Patients and Patients Aged 60 years or older (1 - 1-dose 75+ series) 12/27/2015 Diabetes: Hemoglobin A1C 05/03/2024 04 024, 08/13/2023, 08/13/2023, Additional history exists COVID-19 Vaccine ( season) 2024 06/12/2022, 02/25/2021, 01/28/2021 Influenza Vaccine (Season Ended) 2025 09/09/2023, 08/07/2022, 08/07/2022, Additional history exists Tobacco Screening 07/24/2025 07/24/2024 Dental X-Ray: Full Mouth 03/17/2027 03/16/2024 HIB Vaccines Aged Out No longer eligi ble based on patient's age to complete this topic HPV Vaccines Aged Out No longer eligi ble based on patient's age to complete this topic Hepatitis A Vaccines Aged Out No long er eligible based on patient's age to complete this topic Hepatitis B Vaccines Aged Out No long er eligible based on patient's age to complete this topic IPV Vaccines Aged Out No longer eligi ble based on patient's age to complete this topic Meningococcal B Vaccine Aged Out No l onger eligible based on patient's age to complete this topic Meningococcal Vaccine Aged Out No brody sabrina eligible based on patient's age to complete this topic RSV under 20 months Aged Out No longe r eligible based on patient's age to complete this topic Rotavirus Vaccines Aged Out No longer eligible based on patient's age to complete this topic Procedures Procedure Name Priority Date/Time Associated Diagnosis Comments PANORAMIC RADIOGRAPHIC IMAGE Routine 03/16/2024 1:00 PM EDT from Last 3 Months or Most Recently Relevant to Health Maintenance Insurance [facility]
== END 2025-03-28 09:48 | disposition home or self-care (01) ==
LOC: HO.HPS 09:15
PROVIDERS: PCP Family Medicine; Visit Provider Hospitalist
DX: J45.40 Moderate persistent asthma, uncomplicated (principal); G47.33 Obstructive sleep apnea (adult) (pediatric); J31.0 Chronic rhinitis; I50.22 Chronic systolic (congestive) heart failure; R06.09 Other forms of dyspnea
CPT/HCPCS: 99214; G2211

== ENCOUNTER → 2025-03-28 09:11 | Outpatient (BNVA) | payer OTHER, SELFPAY | PROVIDERS: PCP Family Medicine; Visit Provider Hospitalist | DX: J45.40 Moderate persistent asthma, uncomplicated (principal); G47.33 Obstructive sleep apnea (adult) (pediatric); J31.0 Chronic rhinitis; I50.22 Chronic systolic (congestive) heart failure; R06.09 Other forms of dyspnea; Z99.89 Dependence on other enabling machines and devices | CPT/HCPCS: 99212 ==